=== PATIENT | female | born 1970 | race Caucasian/White ===

== ENCOUNTER → 2017-01-31 | Outpatient (REF) | payer BC ==
[2017-01-31 12:49] LABS: ALBUMIN 3.4 GM/DL (3.2-5.2); ALBUMIN/GLOBULIN RATIO 1.26 (1.00-1.93); ALKALINE PHOSPHATASE 74 U/L (45-117); ALT/SGPT 43 U/L (12-78); ANION GAP 8 MEQ/L (8-16); AST/SGOT 21 U/L (15-37); BILIRUBIN,TOTAL 0.3 MG/DL (0.2-1.0); BLOOD UREA NITROGEN 12 MG/DL (7-18); CALCIUM LEVEL 8.4 MG/DL (8.5-10.1); CARBON DIOXIDE LEVEL 29 MEQ/L (21-32); CHLORIDE LEVEL 105 MEQ/L (98-107); CHOLESTEROL LEVEL 187 MG/DL (<200); CREATININE FOR GFR 0.88 MG/DL (0.55-1.02); FREE T4 1.02 NG/DL (0.76-1.46); GLOMERULAR FILTRATION RATE > 60.0 (>58); GLUCOSE, FASTING 100 MG/DL (70-105); POTASSIUM SERUM 4.2 MEQ/L (3.5-5.1); SODIUM LEVEL 142 MEQ/L (136-145); TOTAL PROTEIN 6.1 GM/DL (6.4-8.2); TRIGLYCERIDES LEVEL 153 MG/DL (<150)
== END ==
LOC: M SFHCCLAY 07:02
PROVIDERS: ATTEND Family Medicine
DX: E78.00 Pure hypercholesterolemia, unspecified (principal); F32.9 Major depressive disorder, single episode, unspecified; E55.9 Vitamin D deficiency, unspecified

== ENCOUNTER → 2018-02-20 | Outpatient (REF) | payer BC ==
[2018-02-20 13:01] LABS: ALBUMIN 3.5 GM/DL (3.2-5.2); ALBUMIN/GLOBULIN RATIO 1.09 (1.00-1.93); ALKALINE PHOSPHATASE 76 U/L (45-117); ALT/SGPT 34 U/L (12-78); ANION GAP 7 MEQ/L (8-16); AST/SGOT 20 U/L (7-37); BILIRUBIN,TOTAL 0.7 MG/DL (0.2-1.0); BLOOD UREA NITROGEN 13 MG/DL (7-18); CALCIUM LEVEL 8.7 MG/DL (8.5-10.1); CARBON DIOXIDE LEVEL 31 MEQ/L (21-32); CHLORIDE LEVEL 104 MEQ/L (98-107); CHOLESTEROL LEVEL 186 MG/DL (<200); CHOLESTEROL RISK RATIO 4.894 (<5); CREATININE FOR GFR 0.98 MG/DL (0.55-1.30); FREE T4 0.96 NG/DL (0.76-1.46); GLOMERULAR FILTRATION RATE > 60.0 (>51); GLUCOSE, FASTING 91 MG/DL (70-100); HDL CHOLESTEROL 38 MG/DL (>40); LDL CHOLESTEROL 107.4 MG/DL (<100); NON-HDL-C 148 MG/DL; POTASSIUM SERUM 3.8 MEQ/L (3.5-5.1); SODIUM LEVEL 142 MEQ/L (136-145); TOTAL PROTEIN 6.7 GM/DL (6.4-8.2); TRIGLYCERIDES LEVEL 203 MG/DL (<150)
[2018-02-21 10:26] LABS: TOTAL 25(OH) VITAMIN D 30.7 NG/ML (30.0-100.0)
== END ==
LOC: M SFHCCLAY 07:10
DX: E78.2 Mixed hyperlipidemia (principal); I10 Essential (primary) hypertension; E55.9 Vitamin D deficiency, unspecified
CPT/HCPCS: 84443

== ENCOUNTER → 2019-02-22 | Outpatient (REF) | payer BC ==
[2019-02-22 11:48] LABS: ALBUMIN 3.1 GM/DL (3.2-5.2); ALT/SGPT 40 U/L (12-78); BILIRUBIN,TOTAL 0.2 MG/DL (0.2-1.0); BLOOD UREA NITROGEN 12 MG/DL (7-18); CALCIUM LEVEL 8.3 MG/DL (8.5-10.1); CARBON DIOXIDE LEVEL 30 MEQ/L (21-32); CHLORIDE LEVEL 108 MEQ/L (98-107); CHOLESTEROL LEVEL 171 MG/DL (<200); CHOLESTEROL RISK RATIO 4.071 (<5); CREATININE FOR GFR 0.79 MG/DL (0.55-1.30); GLOMERULAR FILTRATION RATE > 60.0 (>51); GLUCOSE, FASTING 92 MG/DL (70-100); HDL CHOLESTEROL 42 MG/DL (>40); LDL CHOLESTEROL 107 MG/DL (<100); NON-HDL-C 129 MG/DL; POTASSIUM SERUM 4.3 MEQ/L (3.5-5.1); SODIUM LEVEL 141 MEQ/L (136-145); TOTAL PROTEIN 6.2 GM/DL (6.4-8.2); TRIGLYCERIDES LEVEL 108 MG/DL (<150)
== END ==
LOC: M SFHCCLAY 06:47
PROVIDERS: ATTEND Family Medicine
DX: E78.2 Mixed hyperlipidemia (principal); E55.9 Vitamin D deficiency, unspecified

== ENCOUNTER → 2019-12-03 | Outpatient (REF) | payer BC | LOC: M SFHCCLAY 11:34 | PROVIDERS: ATTEND Family Medicine | DX: L98.9 Disorder of the skin and subcutaneous tissue, unspecified (principal) ==

== ENCOUNTER → 2020-04-28 | Outpatient (REF) | payer BC ==
[2020-04-28 11:56] LABS: ALBUMIN 3.6 GM/DL (3.2-5.2); BILIRUBIN,TOTAL 0.5 MG/DL (0.2-1.0); CHOLESTEROL RISK RATIO 4.292 (<5); CREATININE FOR GFR 1.07 MG/DL (0.55-1.30); GLOMERULAR FILTRATION RATE 57.3 (>51); POTASSIUM SERUM 4.6 MEQ/L (3.5-5.1); TOTAL PROTEIN 6.9 GM/DL (6.4-8.2)
== END ==
LOC: M SFHCCLAY 08:11
PROVIDERS: ATTEND Family Medicine
DX: E78.2 Mixed hyperlipidemia (principal); E55.9 Vitamin D deficiency, unspecified

== ENCOUNTER → 2020-08-07 | Outpatient (REF) | payer BC ==
[2020-08-07 16:12] LABS: BASO % 0.2 % (0.0-1.0); EOS # 0.1 10^3/uL (0.0-0.5); EOS % 1.2 % (0.0-3.0); HEMATOCRIT 40.7 % (36.0-47.0); LYMPH # 1.9 10^3/uL (1.5-5.0); LYMPH % 29.1 % (24.0-44.0); MEAN CORPUSCULAR HEMOGLOBIN 29.3 pg (27.0-33.0); MEAN CORPUSCULAR HGB CONC 31.9 g/dl (32.0-36.5); MEAN CORPUSCULAR VOLUME 91.9 fl (80.0-96.0); MONO # 0.4 10^3/uL (0.0-0.8); MONO % 5.6 % (0.0-5.0); NEUTROPHILS # 4.1 10^3/uL (1.5-8.5); NEUTROPHILS % 63.6 % (36.0-66.0); PLATELET COUNT, AUTOMATED 266 10^3/uL (150-450); RED BLOOD COUNT 4.43 10^6/uL (4.00-5.40); WHITE BLOOD COUNT 6.4 10^3/uL (4.0-10.0)
[2020-08-07 16:51] LABS: ALBUMIN 3.5 GM/DL (3.2-5.2); ALT/SGPT 37 U/L (12-78); BILIRUBIN,TOTAL 0.4 MG/DL (0.2-1.0); BLOOD UREA NITROGEN 9 MG/DL (7-18); CALCIUM LEVEL 8.8 MG/DL (8.5-10.1); CARBON DIOXIDE LEVEL 28 MEQ/L (21-32); CHLORIDE LEVEL 105 MEQ/L (98-107); CREATININE FOR GFR 0.87 MG/DL (0.55-1.30); GLOMERULAR FILTRATION RATE > 60.0 (>51); GLUCOSE, FASTING 100 MG/DL (70-100); POTASSIUM SERUM 4.2 MEQ/L (3.5-5.1); RHEUMATOID FACTOR QUANT < 10.0 IU/ML (<15.0); SODIUM LEVEL 139 MEQ/L (136-145); THYROXINE (T4) 8.8 UG/DL (4.5-12.0); TOTAL PROTEIN 6.4 GM/DL (6.4-8.2)
[2020-08-07 16:52] LABS: THYROID PEROXIDASE ANTIBODY 31.8 U/ML (<60.0)
[2020-08-07 16:53] LABS: THYROGLOBULIN ANTIBODY < 15.0 U/ML (<60.0); TOTAL T3 128.2 NG/DL (60.0-181.0)
[2020-08-07 19:10] LABS: ERYTHROCYTE SEDIMENTATION RATE 17 mm/hr (0-30)
[2020-08-15 18:22] LABS: ANTINUCLEAR ANTIBODIES DIRECT Negative (Negative); IGE RECEPTOR ABY 1 >50.0 (<10)
== END ==
LOC: M LABDRAWC 15:39
PROVIDERS: ATTEND Allergy & Immunology Allergy
DX: L50.1 Idiopathic urticaria (principal)

== ENCOUNTER → 2020-12-18 | Outpatient (CLI) | payer BC ==
[~2020-12-18] MED LIST: ALLE180T33 PO; HYDR-3363 PO; LEVOTAB10 PO; MAXA10TA14 PO; METO1TAB32 PO; OMEP40CA97 PO; PEPC1TAB5 PO; SIMV40TA20 PO; VESI10TA2 PO; WELLTAB38 PO
== END ==
LOC: M LABSMTC 11:10
PROVIDERS: ATTEND Anesthesiology
DX: Z01.812 Encounter for preprocedural laboratory examination (principal); Z20.822 Contact with and (suspected) exposure to COVID-19

== ENCOUNTER 2020-12-23 09:55 | Day surgery (SDC) | payer BC ==
[~2020-12-23] VITALS: Ht 162.6 cm; Wt 129.9 kg
[~2020-12-23 09:55] MED LIST changes: +LIDOCAINE 2% 100MG/5ML SDV (FOR ANES.) As Ordered ONE; +NS 1,000 ML IV ONE; +propofoL 200 MG/20 ML VIAL As Ordered ONE
--- NOTE | 2020-12-23 11:35 | ROOR ---
Patient Name: Juanjo Gr Procedure Date: 12/23/2020 11:15 AM Date of : 1970 Age: 50 Room: [facility] Gender: Female Note Status: Finalized Procedure: Total Colonoscopy to Cecum Indications: Colon cancer screening in patient at increased risk: Colorectal cancer in mother Providers: Gualberto Henderson MD Referring MD: GONZALEZ INFANTE DO Requesting Provider: Medicines: Monitored Anesthesia Care Complications: No immediate complications. Procedure: Pre-Anesthesia Assessment: - The heart rate, respiratory rate, oxygen saturations, blood pressure, adequacy of pulmonary ventilation, and response to care were monitored throughout the procedure. The Colonoscope was introduced through the anus and advanced to the cecum, identified by appendiceal orifice and ileocecal valve. The colonoscopy was performed without difficulty. The patient tolerated the procedure well. The quality of the bowel preparation was good. Findings: The perianal and digital rectal examinations were normal. Non-bleeding internal hemorrhoids were found during retroflexion. The hemorrhoids were small and Grade I (internal hemorrhoids that do not prolapse). Scattered small-mouthed diverticula were found in the recto-sigmoid colon, sigmoid colon and descending colon. The exam was otherwise without abnormality on direct and retroflexion views. Impression: - Non-bleeding internal hemorrhoids. - Diverticulosis in the recto-sigmoid colon, in the sigmoid colon and in the descending colon. - The examination was otherwise normal on direct and retroflexion views. - No specimens collected. - The exam was otherwise normal to the cecum. Recommendation: - Patient has a contact number available for emergencies. The signs and symptoms of potential delayed complications were discussed with the patient. Return to normal activities tomorrow. Written discharge instructions were provided to the patient. - High fiber diet. - Discharge patient to home. - Continue present medications. - Repeat colonoscopy in 5 years for screening purposes. - Return to referring physician. - The findings and recommendations were discussed with the patient. Procedure Code(s): --- Professional --- G0105, Colorectal cancer screening; colonoscopy on individual at high risk Diagnosis Code(s): --- Professional --- Z80.0, Family history of malignant neoplasm of digestive organs K64.0, First degree hemorrhoids K57.30, Diverticulosis of large intestine without perforation or abscess without bleeding CPT copyright 2019 [employer]. All rights reserved. The codes documented in this report are preliminary and upon javascript programmer review may be revised to meet current compliance requirements. Gualberto Henderson MD Gualberto Henderson MD 12/23/2020 11:35:03 AM Electronically signed by Gualberto Henderson MD Number of Addenda: 0 Note Initiated On: 12/23/2020 11:15 AM Estimated Blood Loss: Estimated blood loss: none.
[2020-12-23 12:08] VITALS: BP 129/59
== END 2020-12-23 12:10 | disposition home or self-care (01) ==
LOC: M OPP 09:55
PROVIDERS: ATTEND Internal Medicine Gastroenterology
DX: Z12.11 Encounter for screening for malignant neoplasm of colon (principal); Z80.0 Family history of malignant neoplasm of digestive organs; K57.30 Diverticulosis of large intestine without perforation or abscess without bleeding; K64.0 First degree hemorrhoids; Z79.899 Other long term (current) drug therapy

== ENCOUNTER → 2021-05-19 | Outpatient (REF) | payer BC ==
[~2021-05-19] MED LIST changes: -LIDOCAINE 2% 100MG/5ML SDV (FOR ANES.) As Ordered ONE; -NS 1,000 ML IV ONE; +OMEP40CA4 PO; -OMEP40CA97 PO; -propofoL 200 MG/20 ML VIAL As Ordered ONE
[2021-05-19 12:30] LABS: BASO % 0.1 % (0.0-1.0); EOS # 0.2 10^3/uL (0.0-0.5); EOS % 2.3 % (0.0-3.0); HEMATOCRIT 41.9 % (36.0-47.0); HEMOGLOBIN 13.2 g/dl (12.0-15.5); LYMPH # 2.4 10^3/uL (1.5-5.0); LYMPH % 32.2 % (24.0-44.0); MEAN CORPUSCULAR HEMOGLOBIN 28.4 pg (27.0-33.0); MEAN CORPUSCULAR HGB CONC 31.5 g/dl (32.0-36.5); MEAN CORPUSCULAR VOLUME 90.3 fl (80.0-96.0); MONO # 0.6 10^3/uL (0.0-0.8); MONO % 8.4 % (2.0-8.0); NEUTROPHILS # 4.2 10^3/uL (1.5-8.5); NEUTROPHILS % 56.5 % (36.0-66.0); PLATELET COUNT, AUTOMATED 189 10^3/uL (150-450); RED BLOOD COUNT 4.64 10^6/uL (4.00-5.40); WHITE BLOOD COUNT 7.4 10^3/uL (4.0-10.0)
[2021-05-19 13:05] LABS: ALT/SGPT 60 U/L (12-78); BILIRUBIN,TOTAL 0.4 MG/DL (0.2-1.0); BLOOD UREA NITROGEN 17 MG/DL (7-18); CALCIUM LEVEL 8.7 MG/DL (8.5-10.1); CARBON DIOXIDE LEVEL 29 MEQ/L (21-32); CHLORIDE LEVEL 107 MEQ/L (98-107); CHOLESTEROL LEVEL 181 MG/DL (<200); CHOLESTEROL RISK RATIO 4.209 (<5); CREATININE FOR GFR 0.88 MG/DL (0.55-1.30); GLOMERULAR FILTRATION RATE > 60.0 (>51); GLUCOSE, FASTING 82 MG/DL (70-100); HDL CHOLESTEROL 43 MG/DL (>40); NON-HDL-C 138 MG/DL; POTASSIUM SERUM 4.7 MEQ/L (3.5-5.1); SODIUM LEVEL 139 MEQ/L (136-145); TRIGLYCERIDES LEVEL 219 MG/DL (<150)
[2021-05-19 13:06] LABS: ALBUMIN 3.5 GM/DL (3.2-5.2); LDL CHOLESTEROL 94 MG/DL (<100); RHEUMATOID FACTOR QUANT < 10.0 IU/ML (<15.0); TOTAL PROTEIN 6.6 GM/DL (6.4-8.2)
[2021-05-19 13:35] LABS: ERYTHROCYTE SEDIMENTATION RATE 13 mm/hr (0-30)
== END ==
LOC: M SFHCCLAY 08:24
PROVIDERS: ATTEND Family Medicine
DX: M25.532 Pain in left wrist (principal); M79.641 Pain in right hand; M79.642 Pain in left hand; E55.9 Vitamin D deficiency, unspecified; E78.2 Mixed hyperlipidemia

== ENCOUNTER → 2021-08-31 | Outpatient (REF) | payer BC ==
[2021-08-31 12:40] LABS: CA 125 5.3 U/ML (<30.2); CA19-9 TUMOR MARKER,CARBOHYDRA < 1.2 U/ML (<35.0)
== END ==
LOC: M LABDRAWC 11:08
PROVIDERS: ATTEND Obstetrics & Gynecology
DX: D39.12 Neoplasm of uncertain behavior of left ovary (principal)

== ENCOUNTER → 2021-09-16 | Outpatient (CLI) | payer BC | LOC: M LABSMTC 13:19 | PROVIDERS: ATTEND Anesthesiology | DX: Z01.818 Encounter for other preprocedural examination (principal); Z11.52 Encounter for screening for COVID-19 ==

== ENCOUNTER 2021-09-17 10:48 | Day surgery (SDC) | payer BC ==
[~2021-09-17] VITALS: Ht 162.6 cm; Wt 134.9 kg
[~2021-09-17 10:48] MED LIST changes: +LIDOCAINE 1% MDV 20ML VIAL SQ PRN; +LR 1,000 ML IV ONE; +ceFAZolin SOD 2 GM in IV 1 EA IV ONE
[2021-09-17] MEDS ORDERED: LIDOCAINE 2% 100MG/5ML SDV (FOR ANES.) As Ordered ONE (14:04)
[2021-09-17] MEDS ORDERED: ACETAMINOPHEN 1000MG 100ML IV BTL (OFIRMEV) (J0131 PER 10MG) As Ordered ONE (14:04)
[2021-09-17] MEDS ORDERED: ONDANSETRON 4MG/2ML VIAL As Ordered ONE (14:04)
[2021-09-17] MEDS ORDERED: ROCURONIUM BROMIDE 50 MG/5 ML VIAL As Ordered ONE ×2 (14:04→14:05)
[2021-09-17] MEDS ORDERED: MIDAZOLAM INJ 2MG/2ML VIAL (J2250 PER 1MG) As Ordered ONE (14:04)
[2021-09-17] MEDS ORDERED: KETOROLAC 60MG 2ML VIAL As Ordered ONE (14:04)
[2021-09-17] MEDS ORDERED: SUGAMMADEX SODIUM 500 MG/5 ML VIAL (BRIDION) As Ordered ONE (14:04)
[2021-09-17] MEDS ORDERED: propofoL 200 MG/20 ML VIAL As Ordered ONE ×2 (14:04→14:05)
[2021-09-17] MEDS ORDERED: dexameTHASONE 4 MG/ML 1ML VIAL (J1100 PER 1MG) As Ordered ONE (14:04)
[2021-09-17] MEDS ORDERED: fentaNYL 100 MCG/2 ML INJECTION As Ordered ONE (14:04)
[2021-09-17] MEDS ORDERED: HYDROmorphone HCL 2MG/ML 1ML VIAL As Ordered ONE (14:10)
[2021-09-17] MEDS ORDERED: hydrALAZINE 20MG/ML 1ML VIAL (J0360 PER 20MG) As Ordered ONE (14:31)
[2021-09-17] MEDS ORDERED: fentaNYL 100 MCG/2 ML INJECTION IV PRN (15:45)
[2021-09-17] MEDS ORDERED: oxyCODONE 5MG TAB PO PRN (15:45)
[2021-09-17] MEDS ORDERED: LR 1,000 ML IV SCH (15:45)
[2021-09-17] MEDS ORDERED: HYDROMORPHONE HCL 0.5 MG/ 0.5 ML SYRINGE (J1170 PER 1) IV PRN (15:45)
[2021-09-17] MEDS ORDERED: ONDANSETRON 4MG/2ML VIAL IV PRN (15:45)
[2021-09-17] MEDS ORDERED: METOCLOPRAMIDE INJ 10MG/2ML VIAL (J2765 PER 1) IV PRN (15:45)
[2021-09-17] MEDS ORDERED: MORPHINE 1MG/ML IN 0.9% NACL 100ML IV BAG As Ordered ONE (15:59)
[2021-09-17] MEDS ORDERED: IBUPROFEN 600MG TAB PO PRN (16:25)
[2021-09-17] MEDS ORDERED: MORPHINE 1MG/ML IN 0.9% NACL 100ML IV BAG IV PRN (16:30)
[2021-09-17] MEDS ORDERED: NS 1,000 ML IV SCH (16:30)
[2021-09-17] MEDS ORDERED: NALOXONE INJ 0.4MG/1ML VIAL (J2310 PER 1MG) IV PRN (16:30)
[2021-09-17] MEDS ORDERED: EPIDURAL/PCA KEYS XX PRN (16:30)
[2021-09-17] MEDS ORDERED: NALBUPHINE HCL 10 MG/ML AMP (J2300) IV PRN (16:30)
[2021-09-17] MEDS ORDERED: diphenhydrAMINE 50MG/ML VIAL (J1200) IV PRN (16:30)
[2021-09-17 17:25] VITALS: BP 122/75
[2021-09-17 18:00] VITALS: BP 141/74
[2021-09-17] MEDS: LR 1,000 ML IV SCH (18:22)
[2021-09-17 18:30] VITALS: BP 144/73
[2021-09-17 19:30] VITALS: BP 145/74
[2021-09-17 20:30] VITALS: BP 154/74
[2021-09-17 22:30] VITALS: BP 147/73
[2021-09-18] MEDS: LR 1,000 ML IV SCH ×2 (01:41→08:25)
[2021-09-18 02:00] VITALS: BP 143/73
[2021-09-18 05:19] VITALS: BP 118/65
[2021-09-18] MEDS ORDERED: NORCO, ANEXSIA 5/325MG TABLET (HYDROcodone/ACETAMINOPHEN) PO PRN (06:00)
[2021-09-18 10:00] VITALS: BP 114/58
== END 2021-09-18 12:30 | disposition home or self-care (01) ==
LOC: M SDC 10:48 → M MSPAV 17:23 → M SDC 09-18 12:30
PROVIDERS: ATTEND Obstetrics & Gynecology
DX: D28.2 Benign neoplasm of uterine tubes and ligaments (principal); R19.04 Left lower quadrant abdominal swelling, mass and lump; Q51.4 Unicornate uterus; Q51.818 Other congenital malformations of uterus; K21.9 Gastro-esophageal reflux disease without esophagitis; E78.00 Pure hypercholesterolemia, unspecified; M19.90 Unspecified osteoarthritis, unspecified site; G43.909 Migraine, unspecified, not intractable, without status migrainosus; R06.83 Snoring; R32 Unspecified urinary incontinence; Z79.899 Other long term (current) drug therapy
CPT/HCPCS: 58720; 88108; 88305; 88313; 93005; J0131; J0360; J0690; J1100; J1170; J1885; J2250; J2405; J2765; J3010

== ENCOUNTER → 2022-06-08 | Outpatient (REF) | payer BC ==
[~2022-06-08] MED LIST changes: -LIDOCAINE 1% MDV 20ML VIAL SQ PRN; -LR 1,000 ML IV ONE; -ceFAZolin SOD 2 GM in IV 1 EA IV ONE
[2022-06-08 11:42] LABS: BASO % 0.4 % (0.0-1.0); EOS # 0.2 10^3/uL (0.0-0.5); EOS % 2.2 % (0.0-3.0); HEMATOCRIT 43.1 % (36.0-47.0); LYMPH # 2.4 10^3/uL (1.5-5.0); LYMPH % 32.7 % (24.0-44.0); MEAN CORPUSCULAR HEMOGLOBIN 29.3 pg (27.0-33.0); MEAN CORPUSCULAR HGB CONC 32.5 g/dl (32.0-36.5); MEAN CORPUSCULAR VOLUME 90.2 fl (80.0-96.0); MONO # 0.6 10^3/uL (0.0-0.8); NEUTROPHILS # 4.2 10^3/uL (1.5-8.5); NEUTROPHILS % 56.4 % (36.0-66.0); PLATELET COUNT, AUTOMATED 195 10^3/uL (150-450); RED BLOOD COUNT 4.78 10^6/uL (4.00-5.40); WHITE BLOOD COUNT 7.4 10^3/uL (4.0-10.0)
[2022-06-08 12:02] LABS: ERYTHROCYTE SEDIMENTATION RATE 10 mm/hr (0-30)
[2022-06-08 13:48] LABS: ALBUMIN 3.3 GM/DL (3.2-5.2); ALT/SGPT 55 U/L (12-78); BILIRUBIN,TOTAL 0.4 MG/DL (0.2-1.0); BLOOD UREA NITROGEN 12 MG/DL (7-18); CALCIUM LEVEL 8.9 MG/DL (8.5-10.1); CARBON DIOXIDE LEVEL 26 MEQ/L (21-32); CHLORIDE LEVEL 109 MEQ/L (98-107); CHOLESTEROL LEVEL 160 MG/DL (<200); CREATININE FOR GFR 0.95 MG/DL (0.55-1.30); GLOMERULAR FILTRATION RATE > 60.0 (>51); GLUCOSE, FASTING 99 MG/DL (70-100); HDL CHOLESTEROL 40 MG/DL (>40); LDL CHOLESTEROL 82 MG/DL (<100); NON-HDL-C 120 MG/DL; POTASSIUM SERUM 4.6 MEQ/L (3.5-5.1); RHEUMATOID FACTOR QUANT < 10.0 IU/ML (<15.0); SODIUM LEVEL 140 MEQ/L (136-145); TOTAL PROTEIN 6.6 GM/DL (6.4-8.2); TRIGLYCERIDES LEVEL 192 MG/DL (<150)
== END ==
LOC: M SFHCCLAY 07:28
PROVIDERS: ATTEND Family Medicine
DX: E78.2 Mixed hyperlipidemia (principal); E55.9 Vitamin D deficiency, unspecified; R76.8 Other specified abnormal immunological findings in serum

== ENCOUNTER → 2023-03-29 | Outpatient (CLI) | payer BC ==
[~2023-03-29] MED LIST changes: -MAXA10TA14 PO; +RIZA10TA64 PO
== END ==
LOC: M PLALAB 12:24
PROVIDERS: ATTEND Nurse Practitioner Family
DX: Z01.419 Encounter for gynecological examination (general) (routine) without abnormal findings (principal); Z12.4 Encounter for screening for malignant neoplasm of cervix

== ENCOUNTER → 2023-03-29 | Outpatient (CLI) | payer BC | LOC: M WHC 10:18 | PROVIDERS: ATTEND Nurse Practitioner Family | DX: Z12.31 Encounter for screening mammogram for malignant neoplasm of breast (principal) ==

== ENCOUNTER → 2023-06-17 | Outpatient (REF) | payer BC ==
[2023-06-17 12:40] LABS: ALBUMIN 3.7 G/DL (3.2-5.2); ALKALINE PHOSPHATASE 67 U/L (46-116); ALT/SGPT 44 U/L (7.0-40); AST/SGOT 29 U/L (<34); BILIRUBIN,TOTAL 0.5 MG/DL (0.3-1.2); BLOOD UREA NITROGEN 18 MG/DL (9-23); C REACTIVE PROTEIN QUANTITATIV < 0.40 MG/DL (<1.0); CALCIUM LEVEL 9.6 MG/DL (8.5-10.1); CARBON DIOXIDE LEVEL 30 MMOL/L (20-31); CHLORIDE LEVEL 103 MMOL/L (98-107); CHOLESTEROL LEVEL 172 MG/DL (<200); CHOLESTEROL RISK RATIO 3.81 (<5); CREATININE FOR GFR 0.95 MG/DL (0.55-1.30); GLOMERULAR FILTRATION RATE > 60.0 (>51); GLUCOSE, FASTING 96 MG/DL (60-100); HDL CHOLESTEROL 45.1 MG/DL (>40); LDL CHOLESTEROL 93.5 MG/DL (<100); NON-HDL-C 126.9 MG/DL; POTASSIUM SERUM 4.3 MMOL/L (3.5-5.1); SODIUM LEVEL 141 MMOL/L (136-145); TOTAL PROTEIN 6.6 G/DL (5.7-8.2); TRIGLYCERIDES LEVEL 167 MG/DL (<150)
[2023-06-17 12:42] LABS: RHEUMATOID FACTOR QUANT 4.4 IU/ML (<14)
[2023-06-17 12:44] LABS: BASO % 0.6 % (0.0-1.0); EOS # 0.1 10^3/uL (0.0-0.5); EOS % 2.2 % (0.0-3.0); HEMATOCRIT 44.8 % (36.0-47.0); HEMOGLOBIN 14.4 g/dl (12.0-15.5); LYMPH # 2.5 10^3/uL (1.5-5.0); LYMPH % 38.1 % (24.0-44.0); MEAN CORPUSCULAR HEMOGLOBIN 29.1 pg (27.0-33.0); MEAN CORPUSCULAR HGB CONC 32.1 g/dl (32.0-36.5); MEAN CORPUSCULAR VOLUME 90.5 fl (80.0-96.0); MONO # 0.5 10^3/uL (0.0-0.8); MONO % 8.2 % (2.0-8.0); NEUTROPHILS # 3.3 10^3/uL (1.5-8.5); NEUTROPHILS % 50.6 % (36.0-66.0); PLATELET COUNT, AUTOMATED 222 10^3/uL (150-450); RED BLOOD COUNT 4.95 10^6/uL (4.00-5.40); WHITE BLOOD COUNT 6.5 10^3/uL (4.0-10.0)
[2023-06-17 13:10] LABS: ERYTHROCYTE SEDIMENTATION RATE 22 mm/hr (0-30)
[2023-06-20 12:07] LABS: ANA (HEP2) Negative (.); CYCLIC CITRULLINATED PEPTIDE 2 units (0-19); VITAMIN D 1,25 DIHYDROXY 49.6 pg/mL (24.8-81.5)
== END ==
LOC: M SFHCCLAY 08:20
PROVIDERS: ATTEND Family Medicine
DX: E78.2 Mixed hyperlipidemia (principal); K21.9 Gastro-esophageal reflux disease without esophagitis; E55.9 Vitamin D deficiency, unspecified; R76.8 Other specified abnormal immunological findings in serum

== ENCOUNTER → 2023-06-17 | Outpatient (CLI) | payer BC | LOC: M CLY 08:40 | PROVIDERS: ATTEND Family Medicine | DX: M25.551 Pain in right hip (principal); M25.552 Pain in left hip; M54.59 Other low back pain ==

== ENCOUNTER → 2024-04-04 | Outpatient (REF) | payer BC | LOC: M LAB REF 12:16 | PROVIDERS: ATTEND Nurse Practitioner Family | DX: N95.0 Postmenopausal bleeding (principal) ==

== ENCOUNTER → 2024-04-04 | Outpatient (CLI) | payer BC | LOC: M WHC 08:40 | PROVIDERS: ATTEND Nurse Practitioner Family | DX: Z12.31 Encounter for screening mammogram for malignant neoplasm of breast (principal) ==

== ENCOUNTER → 2024-05-04 | Outpatient (CLI) | payer BC | LOC: M WHC 10:50 | PROVIDERS: ATTEND Nurse Practitioner Family | DX: N95.0 Postmenopausal bleeding (principal) ==

== ENCOUNTER → 2024-05-22 | Outpatient (REF) | payer BC | LOC: M SFHCWAGY 15:02 | PROVIDERS: ATTEND Nurse Practitioner Family | DX: N95.0 Postmenopausal bleeding (principal) ==

== ENCOUNTER → 2024-07-30 | Outpatient (REF) | payer BC ==
[2024-07-30 11:56] LABS: HEMATOCRIT 43.8 % (36.0-47.0); HEMOGLOBIN 14.4 g/dl (12.0-15.5); MEAN CORPUSCULAR HEMOGLOBIN 29.8 pg (27.0-33.0); MEAN CORPUSCULAR HGB CONC 32.9 g/dl (32.0-36.5); MEAN CORPUSCULAR VOLUME 90.5 fl (80.0-96.0); PLATELET COUNT, AUTOMATED 197 10^3/uL (150-450); RED BLOOD COUNT 4.84 10^6/uL (4.00-5.40)
[2024-07-30 12:04] LABS: ERYTHROCYTE SEDIMENTATION RATE 12 mm/hr (0-30)
[2024-07-30 12:18] LABS: C REACTIVE PROTEIN QUANTITATIV < 0.40 MG/DL (<1.0)
[2024-07-30 12:20] LABS: ALBUMIN 3.5 G/DL (3.2-5.2); ALKALINE PHOSPHATASE 68 U/L (46-116); ALT/SGPT 44 U/L (7.0-40); AST/SGOT 24 U/L (<34); BILIRUBIN,TOTAL 0.5 MG/DL (0.3-1.2); BLOOD UREA NITROGEN 21 MG/DL (9-23); CALCIUM LEVEL 10.4 MG/DL (8.5-10.1); CARBON DIOXIDE LEVEL 32 MMOL/L (20-31); CHLORIDE LEVEL 107 MMOL/L (98-107); CHOLESTEROL LEVEL 186 MG/DL (<200); CHOLESTEROL RISK RATIO 4.67 (<5); CREATININE FOR GFR 0.99 MG/DL (0.55-1.30); GLOMERULAR FILTRATION RATE > 60.0 (>51); GLUCOSE, FASTING 96 MG/DL (60-100); HDL CHOLESTEROL 39.8 MG/DL (>40); LDL CHOLESTEROL 109.2 MG/DL (<100); MAGNESIUM LEVEL 2.1 MG/DL (1.8-2.4); NON-HDL-C 146.2 MG/DL; POTASSIUM SERUM 4.8 MMOL/L (3.5-5.1); SODIUM LEVEL 143 MMOL/L (136-145); TOTAL PROTEIN 6.8 G/DL (5.7-8.2); TRIGLYCERIDES LEVEL 185 MG/DL (<150)
[2024-07-31 11:02] LABS: ANA SCREEN, IFA NEGATIVE (NEGATIVE)
[2024-08-01 00:32] LABS: CYCLIC CITRULLINATED PEPTIDE < 16 UNITS (<20)
== END ==
LOC: M SFHCCLAY 08:14
PROVIDERS: ATTEND Family Medicine
DX: E78.2 Mixed hyperlipidemia (principal); K21.9 Gastro-esophageal reflux disease without esophagitis; E55.9 Vitamin D deficiency, unspecified; R76.8 Other specified abnormal immunological findings in serum

== ENCOUNTER → 2024-07-30 | Outpatient (CLI) | payer BC | LOC: M CLY 08:24 | PROVIDERS: ATTEND Family Medicine | DX: M79.641 Pain in right hand (principal); M79.642 Pain in left hand ==

== ENCOUNTER 2024-09-05 09:00 | Day surgery (SDC) | payer BC ==
[~2024-09-05] VITALS: Ht 162.6 cm; Wt 129.5 kg
[~2024-09-05 09:00] MED LIST changes: +HYDR-3490 PO; +METO1TAB7 PO; +RIZA10TA2 PO
[2024-09-05 09:32] LABS: HEMATOCRIT 43.8 % (36.0-47.0); HEMOGLOBIN 14.6 g/dl (12.0-15.5)
[2024-09-05 09:58] LABS: BLOOD UREA NITROGEN 20 MG/DL (9-23); CALCIUM LEVEL 9.8 MG/DL (8.5-10.1); CARBON DIOXIDE LEVEL 31 MMOL/L (20-31); CHLORIDE LEVEL 108 MMOL/L (98-107); GLOMERULAR FILTRATION RATE > 60.0 (>51); GLUCOSE, FASTING 96 MG/DL (60-100); POTASSIUM SERUM 4.5 MMOL/L (3.5-5.1); SODIUM LEVEL 143 MMOL/L (136-145)
[2024-09-05] MEDS ORDERED: propofoL 200 MG/20 ML VIAL As Ordered ONE (11:27)
[2024-09-05] MEDS ORDERED: LIDOCAINE 2% 100MG/5ML SDV (FOR ANES.) As Ordered ONE (11:27)
[2024-09-05] MEDS ORDERED: KETOROLAC 60MG 2ML VIAL As Ordered ONE (11:27)
[2024-09-05] MEDS ORDERED: ONDANSETRON 4MG 2ML VIAL As Ordered ONE (11:28)
[2024-09-05] MEDS ORDERED: MIDAZOLAM INJ 2MG/2ML VIAL As Ordered ONE (11:33)
[2024-09-05] MEDS ORDERED: fentaNYL 100 MCG/2 ML INJECTION As Ordered ONE (11:33)
[2024-09-05] MEDS: SCOPOLAMINE 1MG TRANSDERMAL PATCH TOP ONE (12:28)
[2024-09-05] MEDS ORDERED: METOCLOPRAMIDE INJ 10MG/2ML VIAL As Ordered ONE (12:32)
[2024-09-05] MEDS ORDERED: ACETAMINOPHEN 1000MG/100ML IV BAG As Ordered ONE (12:41)
[2024-09-05] MEDS: LIDOCAINE 1% SDV 30ML VIAL As Ordered ONE (12:56)
[2024-09-05] MEDS: SILVER NITRATE APPLICATOR (1 = QTY 10) As Ordered ONE (13:04)
[2024-09-05] MEDS ORDERED: KETOROLAC 30 MG/ML 1ML VIAL IV ONE (13:15)
[2024-09-05] MEDS ORDERED: fentaNYL 100 MCG/2 ML INJECTION IV PRN (13:15)
[2024-09-05] MEDS ORDERED: METOCLOPRAMIDE INJ 10MG/2ML VIAL IV PRN (13:15)
[2024-09-05] MEDS ORDERED: diphenhydrAMINE 50MG/ML VIAL IV PRN (13:15)
[2024-09-05] MEDS ORDERED: oxyCODONE 5MG TAB PO PRN (13:15)
[2024-09-05] MEDS ORDERED: ONDANSETRON 4MG 2ML VIAL IV PRN (13:15)
[2024-09-05] MEDS ORDERED: MEPERIDINE 25 MG/ML 1ML VIAL IV PRN (13:15)
[2024-09-05 14:09] VITALS: BP 137/63; TEMP 96.5; O2SAT 96
== END 2024-09-05 14:12 | disposition home or self-care (01) ==
LOC: M SDC 09:00
PROVIDERS: ATTEND Obstetrics & Gynecology
DX: N84.0 Polyp of corpus uteri (principal); Z68.42 Body mass index [BMI] 45.0-49.9, adult; Z79.899 Other long term (current) drug therapy
CPT/HCPCS: 36415; 58558; 80048; 85014; 85018; 86850; 86900; 86901; 88305; J0131; J1100; J1885; J2250; J2405; J2765; J3010

== ENCOUNTER 2024-12-31 06:10 | Day surgery (SDC) | payer BC ==
[~2024-12-31] VITALS: Ht 162.6 cm; Wt 128.4 kg
[~2024-12-31 06:10] MED LIST changes: +ACETAMINOPHEN *IV* 1,000 MG in IV 0 EA IV ONE; +ERGO500029 PO; +amberen
[2024-12-31 06:45] LABS: HEMOGLOBIN 14.4 g/dl (12.0-15.5); MEAN CORPUSCULAR HEMOGLOBIN 29.4 pg (27.0-33.0); MEAN CORPUSCULAR VOLUME 91.8 fl (80.0-96.0); PLATELET COUNT, AUTOMATED 194 10^3/uL (150-450); WHITE BLOOD COUNT 8.2 10^3/uL (4.0-10.0)
[2024-12-31] MEDS ORDERED: propofoL 200 MG/20 ML VIAL As Ordered ONE (06:57)
[2024-12-31] MEDS ORDERED: ONDANSETRON 4MG 2ML VIAL As Ordered ONE (06:57)
[2024-12-31] MEDS ORDERED: LIDOCAINE 2% 100MG/5ML SDV (FOR ANES.) As Ordered ONE (06:57)
[2024-12-31] MEDS ORDERED: MIDAZOLAM INJ 2MG/2ML VIAL As Ordered ONE (06:58)
[2024-12-31] MEDS ORDERED: fentaNYL 100 MCG/2 ML INJECTION As Ordered ONE (06:58)
[2024-12-31] MEDS ORDERED: ROCURONIUM BROMIDE 50MG/5ML VIAL As Ordered ONE (07:03)
[2024-12-31 07:09] LABS: ALBUMIN 3.6 G/DL (3.2-5.2); ALKALINE PHOSPHATASE 61 U/L (35-104); ALT/SGPT 55 U/L (7.0-40); AST/SGOT 50 U/L (<34); BILIRUBIN,TOTAL 0.4 MG/DL (0.3-1.2); BLOOD UREA NITROGEN 16 MG/DL (9-23); CALCIUM LEVEL 9.4 MG/DL (8.5-10.1); CARBON DIOXIDE LEVEL 31 MMOL/L (20-31); CHLORIDE LEVEL 104 MMOL/L (98-107); CREATININE FOR GFR 0.84 MG/DL (0.55-1.30); GLOMERULAR FILTRATION RATE > 60.0 (>51); GLUCOSE, FASTING 97 MG/DL (60-100); POTASSIUM SERUM 4.4 MMOL/L (3.5-5.1); SODIUM LEVEL 144 MMOL/L (136-145); TOTAL PROTEIN 6.8 G/DL (5.7-8.2)
[2024-12-31] MEDS: LR 1,000 ML IV SCH (07:09)
[2024-12-31] MEDS ORDERED: SCOPOLAMINE 1MG TRANSDERMAL PATCH As Ordered ONE (07:30)
[2024-12-31] MEDS: ceFAZolin SOD 3 GM in DEXTROSE 5% (D5W) MINI-BAG PLU 1... IV ONE (07:37)
[2024-12-31 08:13] LABS: HCG, SERUM QUALITATIVE NEGATIVE (NEGATIVE)
[2024-12-31] MEDS ORDERED: SUGAMMADEX SODIUM 500 MG/5 ML VIAL (BRIDION) As Ordered ONE (08:45)
[2024-12-31] MEDS ORDERED: LR 1,000 ML IV SCH (10:05)
[2024-12-31] MEDS ORDERED: fentaNYL 100 MCG/2 ML INJECTION IV PRN (10:05)
[2024-12-31] MEDS ORDERED: HYDROMORPHONE HCL 0.5 MG/ 0.5 ML SYRINGE IV PRN (10:05)
[2024-12-31] MEDS ORDERED: oxyCODONE 5MG TAB PO PRN (10:05)
[2024-12-31] MEDS: ONDANSETRON 4MG 2ML VIAL IV PRN (11:07)
[2024-12-31] MEDS: KETOROLAC 30 MG/ML 1ML VIAL IV SCH (11:11)
[2024-12-31 12:20] VITALS: BP 128/62; TEMP 97.7; O2SAT 99
== END 2024-12-31 12:39 | disposition home or self-care (01) ==
LOC: M SDC 06:10
PROVIDERS: ATTEND Obstetrics & Gynecology
DX: N95.0 Postmenopausal bleeding (principal); N88.8 Other specified noninflammatory disorders of cervix uteri; Q51.4 Unicornate uterus; Z90.722 Acquired absence of ovaries, bilateral; I10 Essential (primary) hypertension; E78.00 Pure hypercholesterolemia, unspecified; R32 Unspecified urinary incontinence; K21.9 Gastro-esophageal reflux disease without esophagitis; Z79.899 Other long term (current) drug therapy; G43.909 Migraine, unspecified, not intractable, without status migrainosus; Z98.51 Tubal ligation status
CPT/HCPCS: 36415; 58571; 80053; 84703; 85027; 86850; 86900; 86901; 88307; 93005; J0665; J0690; J1100; J1885; J2250; J2405; J3010; S2900

== ENCOUNTER → 2025-01-29 | Outpatient (REF) | payer BC ==
[~2025-01-29] MED LIST changes: -ACETAMINOPHEN *IV* 1,000 MG in IV 0 EA IV ONE
[2025-01-29 14:12] LABS: THYROID STIMULATING HORMONE 3.473 uIU/ML (0.55-4.78)
[2025-01-29 14:13] LABS: FREE T4 1.08 NG/DL (0.89-1.76)
[2025-01-29 14:16] LABS: ALBUMIN 3.8 G/DL (3.2-5.2); BILIRUBIN,TOTAL 0.5 MG/DL (0.3-1.2); CALCIUM LEVEL 9.9 MG/DL (8.5-10.1); CREATININE FOR GFR 0.91 MG/DL (0.55-1.30); GLOMERULAR FILTRATION RATE 73.6 (>51); POTASSIUM SERUM 4.7 MMOL/L (3.5-5.1)
== END ==
LOC: M SFHCCLAY 08:54
PROVIDERS: ATTEND Family Medicine
DX: H53.2 Diplopia (principal); R03.0 Elevated blood-pressure reading, without diagnosis of hypertension

== ENCOUNTER → 2025-04-17 | Outpatient (CLI) | payer BC | LOC: M WHC 08:52 | PROVIDERS: ATTEND Nurse Practitioner Family | DX: Z12.31 Encounter for screening mammogram for malignant neoplasm of breast (principal) ==

== ENCOUNTER → 2025-07-29 | Outpatient (REF) | payer BC ==
[2025-07-29 18:00] LABS: ALT/SGPT 65.0 U/L (7.0-40); AST/SGOT 51.0 U/L (<34); CALCIUM LEVEL 9.6 MG/DL (8.5-10.1); CARBON DIOXIDE LEVEL 31.0 MMOL/L (20-31); CHLORIDE LEVEL 102.0 MMOL/L (98-107); CHOLESTEROL LEVEL 192.0 MG/DL (<200); CHOLESTEROL RISK RATIO 4.38 (<5); CREATININE FOR GFR 1.0 MG/DL (0.55-1.30); GLOMERULAR FILTRATION RATE 65.7 (>51); LDL CHOLESTEROL 115.0 MG/DL (<100); MAGNESIUM LEVEL 2.0 MG/DL (1.8-2.4); NON-HDL-C 148.2 MG/DL; POTASSIUM SERUM 4.0 MMOL/L (3.5-5.1); SODIUM LEVEL 142.0 MMOL/L (136-145); TRIGLYCERIDES LEVEL 166.0 MG/DL (<150)
[2025-07-29 18:02] LABS: BASO # 0.1 10^3/uL (0.0-0.2); BASO % 0.7 % (0.0-1.0); EOS # 0.2 10^3/uL (0.0-0.5); EOS % 2.2 % (0.0-3.0); LYMPH # 2.6 10^3/uL (1.5-5.0); LYMPH % 36.7 % (24.0-44.0); MONO # 0.7 10^3/uL (0.0-0.8); MONO % 9.4 % (2.0-8.0); NEUTROPHILS # 3.7 10^3/uL (1.5-8.5); NEUTROPHILS % 50.7 % (36.0-66.0); PLATELET COUNT, AUTOMATED 192 10^3/uL (150-450); VITAMIN B12 LEVEL 455.0 PG/ML (211-911)
== END ==
LOC: M SFHCCLAY 08:49
PROVIDERS: ATTEND Family Medicine
DX: E78.2 Mixed hyperlipidemia (principal); K21.9 Gastro-esophageal reflux disease without esophagitis; E55.9 Vitamin D deficiency, unspecified; R20.0 Anesthesia of skin; R20.2 Paresthesia of skin; R79.89 Other specified abnormal findings of blood chemistry